=== PATIENT | female | born 1975 | race Caucasian/White ===

== ENCOUNTER 2019-11-29 19:54 | Emergency (ER) | payer OTHER ==
[~2019-11-29] VITALS: Ht 165.1 cm; Wt 95.3 kg
[2019-11-29 20:02] VITALS: BP 152/99
[2019-11-29] MEDS ORDERED: AMBIEN 10 MG TA10 MG PO (20:04)
[2019-11-29] MEDS ORDERED: CELEXA40 MG PO (20:04)
[2019-11-29] MEDS ORDERED: NORCO 5-325 TA1 EAC2 PO (20:18)
[2019-11-29] MEDS ORDERED: KEFLEX500 M1 PO (20:18)
== END 2019-11-29 20:28 | disposition home or self-care (01) ==
LOC: M.ERS 19:54
DX: L03.031 Cellulitis of right toe (principal)